=== PATIENT | male | born 1985 | race Caucasian/White ===

== ENCOUNTER 2016-03-07 21:52 | Inpatient (IN) | payer OTHER ==
[2016-03-07 23:16] VITALS: BP 148/77; PULSE 94; RESP 18; TEMP 98.2; O2SAT 100
[2016-03-07] MEDS ORDERED: MAGNESIUM HYDROXIDE SUSP 30 ML CUP PO PRN (23:45)
[2016-03-07] MEDS ORDERED: ALUMINUM/MAGNESIUM/SIMETH 30 ML CUP PO PRN (23:45)
[2016-03-07] MEDS ORDERED: BENZTROPINE MESYLATE 2 MG/2 ML VIAL IM PRN (23:45)
[2016-03-07] MEDS ORDERED: diphenhydrAMINE HCL 50 MG CAP - HS PRN PO (23:45)
[2016-03-07] MEDS ORDERED: BENZTROPINE MESYLATE 1 MG TAB PO PRN (23:45)
[2016-03-08] MEDS: hydrOXYzine HCL 50 MG TAB PO PRN ×2 (00:49→09:20)
[2016-03-08 05:52] VITALS: BP 127/75; PULSE 78; RESP 18; TEMP 96.9; O2SAT 98
[2016-03-08] MEDS: NICOTINE 21 MG/24 HR PATCH T-DERMAL SCH (09:00)
[2016-03-08] MEDS: ACETAMINOPHEN 325 MG TAB PO PRN (09:25)
[2016-03-08] MEDS ORDERED: LOPERAMIDE HCL 2 MG CAP PO PRN (11:15)
[2016-03-08] MEDS ORDERED: ONDANSETRON ODT 4 MG TAB PO PRN (11:15)
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
[2016-03-08] MEDS: BACITRACIN TOP OINT 15 GM TUBE TOP SCH ×2 (12:30→21:12)
[2016-03-08 12:48] LABS: ALKALINE PHOSPHATASE 94 U/L (45-117); ALT (GPT) 88 U/L (12-78); ANION GAP 10 MEQ/L (5-15); AST (GOT) 58 U/L (15-37); BLOOD UREA NITROGEN 24 MG/DL (7-18); CHLORIDE 101 MEQ/L (98-107); GLOMERULAR FILTRATION RATE 39 ML/MIN (>89); HDL CHOLESTEROL 42.4 MG/DL (40.0-60.0); LDL CHOLESTEROL 55 MG/DL (0-99); POTASSIUM 3.9 MEQ/L (3.5-5.1); SODIUM (NA) 137 MEQ/L (136-145); TOTAL BILIRUBIN ADULT 2.1 MG/DL (0.2-1.0)
[2016-03-08 13:53] LABS: AUTOMATED NEUTROPHIL # 6.7 TH/MM3 (1.8-7.7); BASOPHIL # 0.1 TH/MM3 (0-0.2); BASOPHIL % 0.6 % (0.0-2.0); EOSINOPHIL # 0.1 TH/MM3 (0-0.4); EOSINOPHIL % 1.3 % (0.0-4.0); HEMATOCRIT 36.5 % (39.0-51.0); HEMO FLAGS DIFF FINAL; LYMPH % 18.7 % (9.0-44.0); LYMPHOCYTE # 1.8 TH/MM3 (1.0-4.8); MEAN CELL VOLUME 86.1 FL (80.0-100.0); MEAN CORPUSCULAR HEMOGLOBIN 29.8 PG (27.0-34.0); MEAN CORPUSCULAR HGB CONC 34.6 % (32.0-36.0); MONO % 8.5 % (0.0-8.0); NEUT % 70.9 % (16.0-70.0); PLATELET COUNT 240 TH/MM3 (150-450); RED BLOOD COUNT 4.24 MIL/MM3 (4.50-5.90); RED CELL DISTRIBUTION WIDTH 12.9 % (11.6-17.2); WHITE BLOOD COUNT 9.5 TH/MM3 (4.0-11.0)
[2016-03-08] MEDS: BACLOFEN 10 MG TAB PO SCH ×2 (14:00→21:15)
[2016-03-08] MEDS: cloNIDine HCL 0.1 MG TAB PO PRN (14:14)
[2016-03-08 18:38] VITALS: BP 122/71; PULSE 76; RESP 18; TEMP 98.5; O2SAT 99
[2016-03-08] MEDS ORDERED: LORazepam 1 MG TAB PO ONE (19:30)
[2016-03-08] MEDS: REMOVE OLD NICOTINE PATCH T-DERMAL SCH (21:00)
[2016-03-09] MEDS: BACLOFEN 10 MG TAB PO SCH ×3 (06:38→23:02)
[2016-03-09 06:48] VITALS: BP 126/74; PULSE 70; RESP 18; TEMP 98.3
[2016-03-09] MEDS: ESCITALOPRAM OXALATE 10 MG TAB PO SCH (09:32)
[2016-03-09] MEDS: BACITRACIN TOP OINT 15 GM TUBE TOP SCH ×2 (09:33→21:00)
[2016-03-09] MEDS: NICOTINE 21 MG/24 HR PATCH T-DERMAL SCH (09:33)
[2016-03-09 11:30] LABS: HEMOGLOBIN A1a 1.5 %; HEMOGLOBIN A1b 1.5 %; HEMOGLOBIN Ao 87.3 %; HEMOGLOBIN LA1C 1.2 %; HEMOGLOBIN P3 3.2 %
[2016-03-09] MEDS: ACETAMINOPHEN 325 MG TAB PO PRN ×2 (13:09→19:48)
--- NOTE | 2016-03-09 16:42 | HHI.PYPN ---
Subjective Remarks Patient was seen and case discussed with nursing. Lab work came back with an elevated creatinine and low GFR. Mildly elevated liver enzymes. Patient has poor insight into his admission. Kidney clear reasons why he was cutting. Urine drug screen was positive for amphetamine and was also using Dilaudid which may not show up. Patient denies suicidal ideations thought or plan. Mood remains depressed. No psychotic symptoms noted. There is a raised area on his left antecubital. Patient denies alcohol or benzodiazepine use Objective Alert: Yes [place]: Person, Place, Date Mood: Depressed Affect: Flat Memory Intact: Immediate Hallucinations: Other Delusions: No Delusion Type: Other Suicidal: Ideation (denies) Homicidal: Ideation (denies) Insight/Judgement Poor Vitals/IOs Vital Signs Date Time Temp Pulse Resp B/P Pulse Ox O2 Delivery O2 Flow Rate FiO2 03/09/16 06:48 98.3 70 18 126/74 03/08/16 18:38 99 Assessment & Plan Problem List: (1) Mood disorder ICD Code: F39 Assessment & Plan Consult medicine and encourage fluids Justification for Cont. Inpt. Patient will decompensate in a less restrictive setting Barak Terrazas DO Mar 09, 2016 16:42
[2016-03-09] MEDS: cloNIDine HCL 0.1 MG TAB PO PRN (19:47)
[2016-03-09 20:19] LABS: AUTOMATED NEUTROPHIL # 5.6 TH/MM3 (1.8-7.7); BASOPHIL # 0.1 TH/MM3 (0-0.2); BASOPHIL % 1.1 % (0.0-2.0); EOSINOPHIL # 0.3 TH/MM3 (0-0.4); EOSINOPHIL % 2.8 % (0.0-4.0); HEMATOCRIT 40.2 % (39.0-51.0); HEMO FLAGS DIFF FINAL; LYMPH % 26.4 % (9.0-44.0); LYMPHOCYTE # 2.4 TH/MM3 (1.0-4.8); MEAN CELL VOLUME 88.1 FL (80.0-100.0); MEAN CORPUSCULAR HEMOGLOBIN 30.4 PG (27.0-34.0); MEAN CORPUSCULAR HGB CONC 34.5 % (32.0-36.0); MONO % 7.3 % (0.0-8.0); NEUT % 62.4 % (16.0-70.0); PLATELET COUNT 272 TH/MM3 (150-450); RED BLOOD COUNT 4.56 MIL/MM3 (4.50-5.90); RED CELL DISTRIBUTION WIDTH 13.2 % (11.6-17.2)
[2016-03-09 20:38] VITALS: BP 134/66; PULSE 66; RESP 18; TEMP 98.6; O2SAT 98
[2016-03-09 20:50] LABS: ALKALINE PHOSPHATASE 99 U/L (45-117); ALT (GPT) 87 U/L (12-78); ANION GAP 9 MEQ/L (5-15); AST (GOT) 39 U/L (15-37); BLOOD UREA NITROGEN 22 MG/DL (7-18); CHLORIDE 104 MEQ/L (98-107); GLOMERULAR FILTRATION RATE 43 ML/MIN (>89); POTASSIUM 4.7 MEQ/L (3.5-5.1); SODIUM (NA) 141 MEQ/L (136-145); TOTAL BILIRUBIN ADULT 0.6 MG/DL (0.2-1.0)
[2016-03-09] MEDS: REMOVE OLD NICOTINE PATCH T-DERMAL SCH (21:00)
[2016-03-09] MEDS: hydrOXYzine HCL 50 MG TAB PO PRN (23:04)
[2016-03-10] MEDS: cloNIDine HCL 0.1 MG TAB PO PRN ×2 (02:28→15:35)
[2016-03-10] MEDS: BACLOFEN 10 MG TAB PO SCH ×2 (06:07→14:04)
[2016-03-10 06:24] VITALS: BP 127/79; PULSE 64; RESP 18; TEMP 97.6; O2SAT 96
[2016-03-10 08:02] LABS: BICARBONATE 27.1 MEQ/L (21.0-32.0); POTASSIUM 4.6 MEQ/L (3.5-5.1)
[2016-03-10] MEDS: BACITRACIN TOP OINT 15 GM TUBE TOP SCH (08:31)
[2016-03-10] MEDS: NICOTINE 21 MG/24 HR PATCH T-DERMAL SCH (08:31)
[2016-03-10] MEDS: ESCITALOPRAM OXALATE 10 MG TAB PO SCH (08:31)
[2016-03-10] MEDS ORDERED: ESCI10TA PO (11:00)
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
[2016-03-10] MEDS ORDERED: CLIN1CAP5 PO (14:45)
[2016-03-10] MEDS: hydrOXYzine HCL 50 MG TAB PO PRN (15:35)
--- NOTE | 2016-03-10 15:39 | PD.CONS ---
HPI Service [facility] Consult Requested By Psychiatric services Reason for Consult Elevated creatinine decreased GFR and hematoma left antecubital fossa. Primary Care Physician Unknown Diagnoses: History of Present Illness This is a 30-year-old male patient with a past medical history which includes ADHD. Patient reports he is generally healthy otherwise and denies any other prior medical conditions. Patient is currently inpatient psychiatric center we have been consulted for assistance with elevated creatinine decreased GFR and hematoma left antecubital fossa. Patient reports he has been eating and drinking regularly denies vomiting or diarrhea. Patient denies any prior kidney or renal problems, that he is aware of. Patient reports his urine has been yellow to clear in color and has had a, "normal," amount of urine output. Patient does admit to IV drug use he reports he uses, "anything," he can get. Patient does inject into the left AC space reports he last injected last , 4 days ago. Patient does use tap water with his injectables. Patient reports he had a miss on while injecting and since then has had a red bump. Patient does not believe the bump is getting bigger reports is about the same size. Denies pain in the area. Patient reports he feels generally well is looking forward to being discharged denies fevers chills nausea vomiting diarrhea constipation chest pain or shortness of breath. Review of Systems Other All other systems reviewed and negative except as mentioned in history of present illness. Past Family Social History Allergies: Coded Allergies: No Known Allergies (Unverified , 02/06/15) Past Medical History ADHD, IV drug use Past Surgical History Left ankle surgical repair Reported Medications Does not take any home medications Active Ordered Medications Current Medications Medications (Trade) Dose Ordered Sig/Sanjay Route Start Time Stop Time Status Last Admin (Atarax) 50 mg Q6H PRN PO 03/07/16 23:45 03/10/16 15:35 (Cogentin) 1 mg Q12H PRN PO 03/07/16 23:45 (Cogentin Inj) 1 mg Q12H PRN IM 03/07/16 23:45 (Benadryl) 50 mg HS PRN PO 03/07/16 23:45 03/09/16 19:47 (Tylenol) 650 mg Q4H PRN PO 03/07/16 23:45 03/09/16 19:48 (Milk Of Magnesia Liq) 30 ml DAILY PRN PO 03/07/16 23:45 (Mag-Al Plus Susp Liq) 30 ml Q6H PRN PO 03/07/16 23:45 (Habitrol 21 Mg Patch.24 Hr) 1 patch DAILY T-DERMAL 03/08/16 09:00 03/10/16 08:31 Miscellaneous Information 1 HS T-DERMAL 03/08/16 21:00 03/09/16 21:00 (Catapres) 0.1 mg Q8H PRN PO 03/08/16 11:15 03/10/16 15:35 (Imodium) 2 mg Q4H PRN PO 03/08/16 11:15 (Zofran Odt) 4 mg Q4H PRN PO 03/08/16 11:15 (Baciguent Oint) 1 applic Q12HR TOP 03/08/16 12:30 03/10/16 08:31 (Lioresal) 10 mg Q8HR PO 03/08/16 14:00 03/10/16 14:04 (Lexapro) 10 mg DAILY PO 03/09/16 09:00 03/10/16 08:31 Family History Denies family medical history Social History Reports he does not drink alcohol Smokes one pack cigarettes per day IV drug use drug of choice Dilaudid and methamphetamines the patient also reports he uses, "anything," he can get. Physical Exam Vital Signs Vital Signs Date Time Temp Pulse Resp B/P Pulse Ox O2 Delivery O2 Flow Rate FiO2 03/10/16 06:24 97.6 64 18 127/79 96 03/09/16 20:38 98.6 66 18 134/66 98 Physical Exam GENERAL: This is a well-nourished, well-developed patient, in no apparent distress. SKIN: Well circumscribed raised area left antecubital fossa no drainage no open skin no surrounding erythema no warmth no tenderness no signs and symptoms of infection EYES: Extraocular motions intact. No scleral icterus. No injection or drainage. CARDIOVASCULAR: Regular rate and rhythm without murmurs, gallops, or rubs. RESPIRATORY: Clear to auscultation. Breath sounds equal bilaterally. No wheezes , rales, or rhonchi. GASTROINTESTINAL: Abdomen soft, non-tender, nondistended. No hepato-splenomegaly , or palpable masses. No guarding. MUSCULOSKELETAL: Extremities without clubbing, cyanosis, or edema. No joint tenderness, effusion, or edema noted. No calf tenderness. Negative Homans sign bilaterally. NEUROLOGICAL: Awake and alert. No focal deficits appreciated. Motor and sensory grossly within normal limits. Five out of 5 muscle strength in all muscle groups. Normal speech. Laboratory Laboratory Tests Test 03/09/16 03/10/16 03/10/16 19:32 07:12 12:00 White Blood Count 9.0 Red Blood Count 4.56 Hemoglobin 13.9 Hematocrit 40.2 Mean Corpuscular Volume 88.1 Mean Corpuscular Hemoglobin 30.4 Mean Corpuscular Hemoglobin 34.5 Concent Red Cell Distribution Width 13.2 Platelet Count 272 Mean Platelet Volume 8.0 Neutrophils (%) (Auto) 62.4 Lymphocytes (%) (Auto) 26.4 Monocytes (%) (Auto) 7.3 Eosinophils (%) (Auto) 2.8 Basophils (%) (Auto) 1.1 Neutrophils # (Auto) 5.6 Lymphocytes # (Auto) 2.4 Monocytes # (Auto) 0.7 Eosinophils # (Auto) 0.3 Basophils # (Auto) 0.1 CBC Comment DIFF FINAL Differential Comment Sodium Level 141 141 Potassium Level 4.7 4.6 Chloride Level 104 108 Carbon Dioxide Level 28.0 27.1 Anion Gap 9 6 Blood Urea Nitrogen 22 22 Creatinine 1.86 1.46 Estimat Glomerular Filtration 43 57 Rate Random Glucose 87 99 Calcium Level 9.0 8.8 Total Bilirubin 0.6 Aspartate Amino Transf 39 (AST/SGOT) Alanine Aminotransferase 87 (ALT/SGPT) Alkaline Phosphatase 99 Total Protein 7.8 Albumin 3.6 Total Creatine Kinase 89 Result Diagram: 03/09/16 1932 03/10/16 0712 Assessment and Plan Assessment and Plan This is a 30-year-old male patient with a past medical history which includes ADHD. Patient reports he is generally healthy otherwise and denies any other prior medical conditions. Patient is currently inpatient psychiatric center we have been consulted for assistance with elevated creatinine decreased GFR and hematoma left antecubital fossa. Acute kidney injury- resolving Creatinine 2.05, 1.86, 1.46 Check CK, result was 89. Acute kidney injury resolving with hydration. Encourage patient to continue oral hydration and follow up with PCP after discharge Hematoma left antecubital fossa- does not appear to be infected Patient does however use tap water and is not IV drug user high risk for infection will treat empirically with clindamycin PO 7 days Patient counseled and is the area gets worse proceeded to emergency department for further evaluation and treatment. Polysubstance use- patient counseled and encouraged to abstain Mood disorder management per psychiatric team DVT prophylaxis patient is ambulatory Patient is medically stable for discharge recommend patient complete course of by mouth antibiotics, increase fluid intake and follow up with PCP Discussed with patient and RN Written by Dunia Ochoa, acting as scribe for Dr. Thomas on 03/10/16 at 15:50. The documentation accurately reflects the work performed [id number] by me on 03/10/16 at 15:50. Dunia Ochoa Mar 10, 2016 15:39 Caleb Thomas MD Mar 11, 2016 16:49
== END 2016-03-10 15:45 | disposition home or self-care (01) | DRG 897 ==
LOC: H270 23:10
PROVIDERS: ADMIT Psychiatry & Neurology Psychiatry; ATTEND Psychiatry & Neurology Psychiatry
DX: F19.94 Other psychoactive substance use, unspecified with psychoactive substance-induced mood disorder (principal); N17.9 Acute kidney failure, unspecified; F19.20 Other psychoactive substance dependence, uncomplicated; F17.210 Nicotine dependence, cigarettes, uncomplicated; S40.022A Contusion of left upper arm, initial encounter; X58.XXXA Exposure to other specified factors, initial encounter
CPT/HCPCS: 80048; 80053; 80061; 82550; 83036; 85025; Q0163